=== PATIENT | female | born 2000 | race Caucasian/White ===

== ENCOUNTER 2023-06-02 14:49 | Emergency (ER) | payer OTHER, SELFPAY ==
[2023-06-02 14:53] VITALS: BP 126/84; PULSE 103; RESP 20; TEMP 36.6; O2SAT 96; BMI 31.9
--- NOTE | 2023-06-02 15:06 | ED.GENADULT ---
HPI - General Adult General Chief complaint: Fever Stated complaint: chills, fever, cough Time Seen by Provider: 06/02/23 15:01 Source: patient Mode of arrival: ambulatory Limitations: no limitations History of Present Illness HPI narrative: 22-year-old female, generally healthy, presenting today with 4 days of fevers, decreased appetite, chills, aches, fatigue, headaches. She did vomit 1 time today. She denies any diarrhea or urinary symptoms. No chest or abdominal pain. She does have a cough. Denies a sore throat. Denies any sick contacts. She is not on any regular medications. Related Data Allergies Allergy/AdvReac Type Severity Reaction Status Date / Time azithromycin AdvReac Hives Verified 06/02/23 14:58 Review of Systems Status of ROS: Reports: 10 or more systems reviewed and unremarkable except as noted in History and below [facility] Social History Smoking Status: Never smoker Do you use any of these nicotine containing products: None Second hand tobacco smoke exposure: No How often do you have a drink containing alcohol: never How often do you have six or more drinks on one occasion: Never AUDIT-C Alcohol total score: 0 Non-prescribed substance use: denies use service: No Exam Narrative: Exam Narrative: Well-nourished well-developed patient in no acute distress. Alert and oriented. Answers questions appropriately. Mood and affect are appropriate. Thoughts are goal oriented and rational. No tangential or magical thinking noted. Patient speaks in full sentences without needing to catch their breath. Sounds very congested. HEENT: Normocephalic atraumatic. Pupils are equally round reactive to light. Extraocular muscles are intact. Conjunctivae are moist without any icterus noted. Moist mucous membranes. Posterior pharynx is normal. Neck is soft. Cardiovascular: Heart is regular rate and rhythm S1 and S2 are present without any murmurs. Lungs: Clear to auscultation bilaterally no wheezes rhonchi or rales are appreciated. Patient takes deep breaths without any discomfort. Abdomen: Soft and nontender nondistended with normal bowel sounds. Extremities: Bilateral lower extremities are without edema. Skin: Well perfused without any obvious rashes. Const: Vital Signs, click to edit/add: Vital Signs - 24 hr 06/02/23 14:53 Temperature 98 F Pulse Rate [Right Pulse Oximeter] 103 H Respiratory Rate 20 Blood Pressure [Ri ght Upper Arm] 126/84 Pulse Oximetry 96 Oxygen Delivery Me thod Room Air Course Course ED Course: IV established patient received a L normal saline and Zofran. Triple swab was done: Positive for influenza B. Vital Signs Vital signs: Initial Vital Signs Temperature 98 F 06/02/23 14:53 Temperature Source Oral 06/02/23 14:53 Pulse Rate 103 H 06/02/23 14:53 Pulse Rhythm Regular 06/02/23 14:53 Respiratory Rate 20 06/02/23 14:53 Blood Pressure 126/84 06/02/23 14:53 Blood Pressure Mean 98 06/02/23 14:53 Blood Pressure Position Sitting 06/02/23 14:53 Pulse Oximetry 96 06/02/23 14:53 Oxygen Delivery Method Room Air 06/02/23 14:53 Vital Signs Temperature 98 F 06/02/23 14:53 Pulse Rate 103 H 06/02/23 14:53 Respiratory Rate 20 06/02/23 14:53 Blood Pressure 126/84 06/02/23 14:53 Pulse Oximetry 96 06/02/23 14:53 Oxygen Delivery Method Room Air 06/02/23 14:53 Temperature 98 F 06/02/23 14:53 Pulse Rate 103 H 06/02/23 14:53 Respiratory Rate 20 06/02/23 14:53 Blood Pressure 126/84 06/02/23 14:53 Pulse Oximetry 96 06/02/23 14:53 Oxygen Delivery Method Room Air 06/02/23 14:53 Medications Administered Medications: Generic Name Dose Route Start Last Admin Trade Name Freq PRN Reason Stop Dose Admin Sodium Chloride 1,000 mls @ 1,000 mls/hr 06/02/23 15:15 06/02/23 15:17 0.9 % Sodium Chloride 1000 Ml IV 06/02/23 16:14 1,000 mls/hr .Q1H YAMIL Administration Discontinued Medications Generic Name Dose Route Start Last Admin Trade Name Freq PRN Reason Stop Dose Admin Ondansetron HCl 4 mg 06/02/23 15:06 06/02/23 15:19 Ondansetron 2 Mg/Ml Inj IVP 06/02/23 15:07 4 mg ONCE ONE Administration Medical Decision Making [facility] Narrative Medical decision making narrative: 22-year-old female with influenza B. We discussed symptomatic treatment. Given that the patient is on day 4 of symptoms, is young and healthy, do not recommend Tamiflu at this time. Lab Data Lab results reviewed: Yes I reviewed the patient's lab results Labs: Lab Results 06/02/23 Range/Units 15:00 SARS-CoV-2 (PCR) Negative SARS-CoV-2 (Negative) Influenza Type A (PCR) Negative PCR FLU A (Negative) Influenza Type B (PCR) POSITIVE PCR FLU B A (Negative) RSV (PCR) Negative PCR RSV (Negative) Discharge Plan Discharge Clinical Impression: Influenza B Patient Disposition: Home, Self-Care Condition: Stable Additional Instructions: Rest as much as you need to. Remain hydrated by drinking small amounts of fluid frequently throughout the day. Wear a mask around other people. Okay to use ibuprofen or Tylenol as needed for fevers or aches and pains. Follow Up/Referrals: Provider,Not a Local [Primary Care Provider] - Stand Alone Forms: [employer] Info Instructions
[2023-06-02] MEDS: 0.9 % SODIUM CHLORIDE 1000 ml 1,000 ML IV (15:17)
[2023-06-02] MEDS: ONDANSETRON 2 MG/ML inj 4 MG IVP (15:19)
[2023-06-02 15:43] LABS: PCR FLU A Negative PCR FLU A (Negative); PCR FLU B POSITIVE PCR FLU B (Negative); PCR RSV Negative PCR RSV (Negative); SARS PCR* Negative SARS-CoV-2 (Negative)
== END 2023-06-02 16:05 | disposition home or self-care (01) ==
PROVIDERS: Emergency Provider Family Medicine
DX: J10.1 Influenza due to other identified influenza virus with other respiratory manifestations (principal)
CPT/HCPCS: 87631; 96374; 99283; 99284; J2405; J7030